=== PATIENT | female | born 1950 | race Caucasian/White ===

== ENCOUNTER 2019-08-13 06:18 | Day surgery (SDC) | payer MEDICARE, MEDICAID, SELFPAY ==
[2019-08-10 11:54] VITALS: BMI 25.7
[2019-08-13 06:35] VITALS: BP 119/62; PULSE 85; RESP 18; TEMP 36.3; O2SAT 94
[2019-08-13] MEDS: sodium chloride 0.9% 1,000 ML 30 ML (06:39)
--- NOTE | 2019-08-13 06:52 | ANES.PREANE2 ---
Pre-Anesthetic Assessment Pre-Anesthetic Assessment: Height/Weight: Height 1.68 m Weight 72.121 kg Temp Pulse Resp BP Pulse Ox 97.3 F L 85 18 119/62 94 08/13/19 06:35 08/13/19 06:35 08/13/19 06:35 08/13/19 06:35 08/13/19 06:35 Preop Diagnosis: Constipation Proposed Procedure: Operation Date: 08/13/19 07:30 Proposed Procedures p Colonoscopy 48129/K59.09(Not Applicable) - Liam Edwards MD Was Beta Drake taken within 24 hours: N/A Last intake: Intake Last Liquid Date 08/12/19 Last Liquid Time 21:00 Last Solid Date 08/08/19 Social: Social History: No alcohol and No tobacco Exam: Pre-Anes Outpt Exam: alert, oriented x 3, clear to auscultation bilaterally and regular rate & rhythm Airway: MP: 2 Dentition: False (top) History/ROS: No significant history except as noted and No significant complaints Pulmonary: Pulmonary: None reported CV/HEM: CV/HEM: HTN : : None reported Hepatic: Hepatic: None reported GI: GI: GERD (controlled) Metabolic: Metabolic: Thyroid (thyroidectomy) Musc/skel: Musc/skel: OA/DJD Neuropsych: Neuropsych: None reported Anesthetic Plan: ASA status: 2 Anesthesia: MAC PFSH Anesthesia PFSH: Social History Smoking and tobacco status: former smoker Alcohol intake: never Lives independently: Yes Marital status: Current occupational status: retired History of recent travel: No Data Anesthesia Cardiac Studies: No Data to Display
--- NOTE | 2019-08-13 07:05 | W.PM.OPSUD ---
Surgery/Procedure H&P Update DATE OF PROCEDURE: August 13, 2019 DATE H&P PERFORMED: 07/23/19 H&P UPDATE INFORMATION: I have reviewed H&P completed within last 30 days, I have examined patient prior to procedure and No changes to prior documentation PREOP DIAGNOSIS: Constipation PLANNED PROCEDURE: Operation Date: 08/13/19 07:30 Proposed Procedures p Colonoscopy 07132/K59.09(Not Applicable) - Liam Edwards MD
[2019-08-13 08:05] VITALS: BP 91/46; PULSE 61; RESP 16; TEMP 36.2; O2SAT 95
--- NOTE | 2019-08-13 08:16 | ANE.PACU2 ---
 Inpatient post-anesthesia follow up: Airway intact: Yes Vital signs: Temperature 97.3 F Pulse Rate 85 Respiratory Rate 18 Blood Pressure 119/62 Pulse Oximetry 94 Oxygen Delivery Me thod Room Air Oxygen Flow Rate Fraction of Inspir ed Oxygen Hydration adequate: Yes Nausea and vomiting: No
[2019-08-13 08:30] VITALS: BP 91/49; PULSE 58; RESP 16; TEMP 36.2; O2SAT 99
== END 2019-08-13 08:43 | disposition home or self-care (01) ==
PROVIDERS: Family Provider Family Medicine; PCP Family Medicine; Visit Provider Surgery
PROC: 0DJD8ZZ Inspection of Lower Intestinal Tract, Via Natural or Artificial Opening Endoscopic (ICD-10-PCS; CPT 45378; principal; 2019-08-13 07:30)
DX: K59.00 Constipation, unspecified (principal); Z86.010 Personal history of colon polyps; D12.5 Benign neoplasm of sigmoid colon; K64.8 Other hemorrhoids; I10 Essential (primary) hypertension; K21.9 Gastro-esophageal reflux disease without esophagitis; M19.90 Unspecified osteoarthritis, unspecified site; Z87.891 Personal history of nicotine dependence; E78.5 Hyperlipidemia, unspecified; Z83.3 Family history of diabetes mellitus; Z82.49 Family history of ischemic heart disease and other diseases of the circulatory system
CPT/HCPCS: 12345; 45385; 88305; J2704; J7030

== ENCOUNTER → 2019-09-13 09:11 | Outpatient (BNVA) | payer MEDICARE, MEDICAID, SELFPAY | PROVIDERS: Family Provider Family Medicine; PCP Family Medicine; Visit Provider Family Medicine | DX: I10 Essential (primary) hypertension (principal) | CPT/HCPCS: 80053; 80061 ==

== ENCOUNTER 2020-01-08 06:16 | Day surgery (SDC) | payer MEDICARE, MEDICAID, SELFPAY ==
[2020-01-01 11:54] VITALS: BMI 25.7
[2020-01-08 06:36] VITALS: BP 117/54; PULSE 61; RESP 18; TEMP 36.3; O2SAT 96
[2020-01-08] MEDS: sodium chloride 0.9% 1,000 ML 30 ML IV (06:53)
--- NOTE | 2020-01-08 06:56 | ANES.PREANE2 ---
Pre-Anesthetic Assessment Pre-Anesthetic Assessment: Height/Weight: Height 1.68 m Weight 72.121 kg Temp Pulse Resp BP Pulse Ox 97.3 F L 61 18 117/54 96 01/08/20 06:36 01/08/20 06:36 01/08/20 06:36 01/08/20 06:36 01/08/20 06:36 Preop Diagnosis: dysphagia Proposed Procedure: Operation Date: 01/08/20 07:30 Proposed Procedures p EGD 92237 K21.9(Not Applicable) - Liam Edwards MD Was Beta Drake taken within 24 hours: N/A Last intake: Intake Last Liquid Date 01/07/20 Last Liquid Time 18:00 Last Solid Date 01/07/20 Last Solid Time 18:00 Social: Social History: No alcohol and No tobacco Exam: Pre-Anes Outpt Exam: alert, oriented x 3, clear to auscultation bilaterally and regular rate & rhythm Airway: Submandibular: WNL Cervical ROM: WNL MP: 2 Dentition: False (upper plate) History/ROS: No significant history except as noted and No significant complaints Pulmonary: Pulmonary: None reported CV/HEM: CV/HEM: HTN : : None reported Hepatic: Hepatic: None reported GI: GI: GERD (controlled) Metabolic: Metabolic: Thyroid Musc/skel: Musc/skel: None reported Neuropsych: Neuropsych: None reported Anesthetic Plan: ASA status: 2 Anesthesia: Anesthesia Evaluation and MAC Risk of > 500 ml blood loss (7ml/kg in children): No Meds/Allergies Current Medications: Current Medications Generic Name Dose Route Start Last Admin Trade Name Freq PRN Reason Stop Dose Admin Sodium Chloride 1,000 mls @ 30 ml s/hr 01/08/20 06:30 01/08/20 06:53 Sodium Chloride 0.9% IV 30 mls/hr .Q24H ESTHELA Administration PFSH Anesthesia PFSH: Medical History Chronic cystitis Hypercholesteremia Hyperlipemia Hypothyroidism Surgical History H/O esophagogastroduodenoscopy 2018 History of appendectomy History of cholecystectomy 2018 History of thyroidectomy Status post colonoscopy with polypectomy 08/12/19: sigmoid polyp Family History Father , At age 82 from COPD and heart complications. COPD (chronic obstructive pulmonary disease) Mother , Age 76 Heart disease Other Diabetes Denies family history of Anesthesia complication Bleeding disorder Social History Smoking and tobacco status: former smoker Alcohol intake: never Lives independently: Yes Marital status: Current occupational status: retired History of recent travel: No Data Anesthesia Cardiac Studies: No Data to Display
--- NOTE | 2020-01-08 07:39 | W.PM.OPSFHP ---
Same Day Surgery H&P Indication for Procedure/HPI DATE OF PROCEDURE: January 08, 2020 CHIEF COMPLAINT/INDICATIONFOR SURGICAL PROCEDURE: throat discomfort PREOP DIAGNOSIS: dysphagia PLANNED PROCEDRUE: Operation Date: 01/08/20 07:30 Proposed Procedures p EGD 25716 K21.9(Not Applicable) - Liam Edwards MD Medications/Allergies* Home Medications Medication Instructions Recorded Confirmed Type cholecalciferol (vitamin D3) 25 1,000 unit PO QDAY 07/11/19 01/08/20 History mcg (1,000 unit) capsule hydrochlorothiazide 12.5 mg capsule 25 mg PO QAM 07/11/19 01/08/20 History levothyroxine 100 mcg capsule 100 mcg PO QDAY 07/11/19 01/08/20 History pantoprazole 40 mg tablet,delayed 40 mg PO QDAY 07/11/19 01/08/20 History release pravastatin 40 mg tablet 60 mg PO QDAY tab 07/11/19 01/08/20 History Allergies/Adverse Reactions Allergy/AdvReac Type Severity Reaction Status Date / Time acetaminophen Allergy Unknown Verified 08/28/19 11:07 [From Darvocet-N] codeine Allergy ADR-Nausea Verified 08/28/19 11:07 nitrofurantoin Allergy ADR-Nausea Verified 08/28/19 11:07 [From Macrobid] propoxyphene Allergy Unknown Verified 08/28/19 11:07 [From Darvocet-N] Current Medications: Generic Name Dose Route Start Last Admin Trade Name Freq PRN Reason Stop Dose Admin Sodium Chloride 1,000 mls @ 30 mls/hr 01/08/20 06:30 01/08/20 06:53 Sodium Chloride 0.9% IV 30 mls/hr .Q24H ESTHELA Administration Pertinent History/Comorbid Conditions* Medical History (Updated 11/21/19 @ 12:29 by Abby Mckeon APRN) Chronic cystitis Hypercholesteremia Hyperlipemia Hypothyroidism Surgical History (Updated 08/29/19 @ 09:12 by Liam Edwards MD) H/O esophagogastroduodenoscopy 2018 History of appendectomy History of cholecystectomy 2018 History of thyroidectomy Status post colonoscopy with polypectomy 08/12/19: sigmoid polyp Family History (Updated 07/23/19 @ 15:02 by Natasha Mckeon LPN) Father, At age 82 from COPD and heart complications. Mother, Age 76 Diabetes Heart disease Mother COPD (chronic obstructive pulmonary disease) Father Denies family history of Anesthesia complication Bleeding disorder Social History Smoking and tobacco status: former smoker Alcohol intake: never Lives independently: Yes Marital status: Current occupational status: retired History of recent travel: No Pertinent Exam Findings alert, oriented x 3 and regular rate & rhythm Recommendations Surgery/Procedure today Coding Level of Care Code Acute Supervising Bailiff for Mariya Elaine
[2020-01-08 07:47] VITALS: BP 107/53; PULSE 67; RESP 16; TEMP 36.2; O2SAT 95
[2020-01-08 07:55] VITALS: BP 102/56; PULSE 59; RESP 18; O2SAT 97
== END 2020-01-08 08:05 | disposition home or self-care (01) ==
PROVIDERS: PCP Family Medicine; Visit Provider Surgery
PROC: 0DJ08ZZ Inspection of Upper Intestinal Tract, Via Natural or Artificial Opening Endoscopic (ICD-10-PCS; CPT 43235; principal; 2020-01-08 07:30)
DX: R13.10 Dysphagia, unspecified (principal); E78.5 Hyperlipidemia, unspecified; E03.9 Hypothyroidism, unspecified; E78.00 Pure hypercholesterolemia, unspecified; Z87.891 Personal history of nicotine dependence; I10 Essential (primary) hypertension; K21.9 Gastro-esophageal reflux disease without esophagitis; K22.2 Esophageal obstruction; K44.9 Diaphragmatic hernia without obstruction or gangrene; K29.70 Gastritis, unspecified, without bleeding
CPT/HCPCS: 12345; 43239; 88305; J2704; J7030

== ENCOUNTER 2020-02-19 06:00 | Outpatient (RCR) | payer MEDICARE, MEDICAID, SELFPAY | END 2020-03-19 23:59 | disposition home or self-care (01) | LOC: WPT 06:00 | PROVIDERS: PCP Family Medicine; Referring Provider Family Medicine; Visit Provider Family Medicine | DX: H81.10 Benign paroxysmal vertigo, unspecified ear (principal) | CPT/HCPCS: 97110; 97164 ==

== ENCOUNTER 2020-03-20 09:00 | Outpatient (RCR) | payer MEDICARE, MEDICAID, SELFPAY | END 2020-03-21 10:00 | disposition home or self-care (01) | LOC: WPT 09:00 | PROVIDERS: PCP Family Medicine; Referring Provider Family Medicine; Visit Provider Family Medicine | DX: H81.10 Benign paroxysmal vertigo, unspecified ear (principal) | CPT/HCPCS: 97110 ==

== ENCOUNTER → 2020-08-13 12:57 | Outpatient (BNVA) | payer MEDICARE, MEDICAID, SELFPAY | PROVIDERS: PCP Family Medicine; Visit Provider Urology | DX: N30.20 Other chronic cystitis without hematuria (principal) | CPT/HCPCS: 81003 ==

== ENCOUNTER 2020-08-29 13:01 | Outpatient (CLI) | payer MEDICARE, MEDICAID, SELFPAY ==
--- NOTE | 2020-08-29 13:04 | MM_ITS ---
WS: [id number] BILATERAL DIGITAL SCREENING MAMMOGRAPHY WITH CAD CLINICAL INFORMATION: SCREENING HISTORY: Screening mammogram. No current complaints. COMPARISON: TECHNIQUE: Bilateral CC and MLO views. FINDINGS: Scattered fibroglandular densities bilaterally. No suspicious focal mass, asymmetry, calcifications, or architectural distortion. No evidence of malignancy. A few stable intramammary lymph nodes. MM/[place] [id number] IMPRESSION: BI-RADS: 2-Benign FOLLOW UP: 1 Year Follow-up Recommend return to annual screening mammography.
== END 2020-08-29 13:02 | disposition home or self-care (01) ==
PROVIDERS: PCP Family Medicine; Visit Provider Family Medicine
DX: Z12.31 Encounter for screening mammogram for malignant neoplasm of breast (principal)
CPT/HCPCS: 77067

== ENCOUNTER 2020-11-05 13:18 | Outpatient (RCR) | payer MEDICARE, SELFPAY | END 2020-11-17 23:59 | disposition home or self-care (01) | LOC: SPT 13:18 | PROVIDERS: PCP Family Medicine; Referring Provider Family Medicine; Visit Provider Family Medicine | DX: H81.10 Benign paroxysmal vertigo, unspecified ear (principal) | CPT/HCPCS: 95992; 97162 ==

== ENCOUNTER 2020-11-11 12:51 | Outpatient (CLI) | payer MEDICARE, MEDICAID, SELFPAY ==
--- NOTE | 2020-11-11 12:57 | XR_ITS ---
WS: [id number] SCREENING DEXA SCAN [employer] CLINICAL INFORMATION: OSTEOPOROSIS COMPARISON: May 2018 FINDINGS: The L1-L4 bone mineral density measures 0.875 g/cm2. This corresponds to a T score score of -2.5 and Z score of -1.2. Left femoral neck bone mineral density measures 0.857 g/cm2. This corresponds to a T score of -1.2 an d Z score of 0.0. Right femoral neck bone mineral density measures 0.844 g/cm2. This corresponds to a T score -1.3of an d Z score of -0.1. Mean femoral neck bone mineral density measures 0.850 g/cm2. This corresponds to a T score of -1.2 an d Z score of 0.0. XR/XR DEXA axial skeleton* [id number] IMPRESSION: Osteopenia at the upper end of the range Patient's FRAX calculated 10 year probability for major osteoporotic fracture i s 18.7 % and osteoporotic hip fracture is 4.3%.
== END 2020-11-11 12:52 | disposition home or self-care (01) ==
PROVIDERS: PCP Family Medicine; Visit Provider Family Medicine
DX: M81.0 Age-related osteoporosis without current pathological fracture (principal)
CPT/HCPCS: 77080

== ENCOUNTER 2020-11-18 06:00 | Outpatient (RCR) | payer MEDICARE, MEDICAID, SELFPAY | END 2020-12-17 23:59 | disposition home or self-care (01) | LOC: SPT 06:00 | PROVIDERS: PCP Family Medicine; Referring Provider Family Medicine; Visit Provider Family Medicine | DX: H81.10 Benign paroxysmal vertigo, unspecified ear (principal) | CPT/HCPCS: 95992 ==

== ENCOUNTER → 2021-04-02 08:16 | Outpatient (BNVA) | payer MEDICARE, MEDICAID, SELFPAY | PROVIDERS: PCP Family Medicine; Visit Provider Family Medicine | DX: E78.5 Hyperlipidemia, unspecified (principal) | CPT/HCPCS: 80061; 83721 ==

== ENCOUNTER 2021-04-20 06:00 | Outpatient (RCR) | payer MEDICARE, MEDICAID, SELFPAY | END 2021-05-19 23:59 | disposition home or self-care (01) | LOC: SPT 06:00 | PROVIDERS: PCP Family Medicine; Referring Provider Family Medicine; Visit Provider Family Medicine | DX: H81.10 Benign paroxysmal vertigo, unspecified ear (principal) | CPT/HCPCS: 95992; 97162 ==

== ENCOUNTER 2021-06-01 13:23 | Outpatient (CLI) | payer MEDICARE, MEDICAID, SELFPAY ==
--- NOTE | 2021-06-01 13:27 | MR_ITS ---
WS: [id number] MRI HEAD WITH CONTRAST TECHNIQUE: Sagittal T1, T2 axial, T2 axial FLAIR, axial susceptibility weighted imaging, axial diffus ion weighted images, and coronal T2 images were obtained. Pre and post-T1 axial and post T1 coronal i mages. ADC and FSPGR images. CLINICAL INFORMATION: HEADACHE UNSPEC;VERTIGO COMPARISON: None. FINDINGS: No evidence of restricted diffusion to suggest acute ischemia. Ventricular system and basal cisterns are patent. Mild small vessel changes. Mild parenchymal volume loss. Normal posterior fossa. Normal v ascular flow voids at the skull base. No extra-axial fluid collections. Paranasal sinuses and mastoid air cells well aerated. No hemosiderin on the susceptibly weighted images. Normal optic chiasm and p ituitary infundibulum. Mild symmetric atrophy temporal lobes and hippocampal formations. No abnormal gadolinium enhancement. Normal visualized dural venous sinuses. No other significant find ings. MR/MR head wo/w con [id number] IMPRESSION: 1. No evidence of restricted diffusion to suggest acute ischemia. 2. Mild small vessel changes with mild parenchymal volume loss. 3. No abnormal gadolinium enhancement. 4. Paranasal sinuses and mastoid air cells are well aerated. 5. Mild symmetric atrophy temporal lobes and hippocampal formations. 6. No hemosiderin on susceptibly weighted images. 7. No acute intracranial findings.
[2021-06-01 14:43] LABS: Blood Urea Nitrogen 12 mg/dL (8-23); Glomerular Filtration Rate 82.7 mL/min (90-130)
== END 2021-06-01 13:24 | disposition home or self-care (01) ==
LOC: RADSHAW 13:26
PROVIDERS: PCP Family Medicine; Visit Provider Family Medicine
DX: R51.9 Headache, unspecified (principal); R42 Dizziness and giddiness; G31.9 Degenerative disease of nervous system, unspecified
CPT/HCPCS: 70553; 82565; 84520; A9579

== ENCOUNTER → 2021-09-10 15:38 | Outpatient (BNVA) | payer MEDICARE, MEDICAID, SELFPAY | PROVIDERS: PCP Family Medicine; Visit Provider Surgery | DX: Z20.822 Contact with and (suspected) exposure to COVID-19 (principal) | CPT/HCPCS: 87635 ==

== ENCOUNTER 2021-09-16 07:32 | Day surgery (SDC) | payer MEDICARE, MEDICAID, SELFPAY ==
[2021-09-14 09:40] VITALS: BMI 26.3
--- NOTE | 2021-09-16 08:22 | ANES.PREANE2 ---
Pre-Anesthetic Assessment Height/Weight: Height 1.68 m Weight 73.936 kg Preop Diagnosis: upper gi symptoms Operation Date: 09/16/21 09:15 Proposed Procedures p EGD Dilation 65383/r13.10(Not Applicable) - Liam Edwards MD Familial anesthetic complications: None Was Beta Drake taken within 24 hours: N/A Was Clonidine taken within 24 hours: N/A Last intake: 09/15/21 Social No alcohol and No tobacco Former smoker pack(s) per day Exam alert, oriented x 3, clear to auscultation bilaterally and regular rate & rhythm Airway Submandibular: within normal limits Cervical ROM: within normal limits Mallampati: Class II Dentition: partials Pulmonary None reported CV/HEM None reported METS = 4 Cystitis hx Hepatic None reported GI GERD w/ reflux, recurrent food bolus per patient Metabolic Thyroid Disease [facility] [place] None reported Neuropsych None reported Anesthetic Plan ASA status: 2 Anesthesia: Anesthesia Evaluation, General and MAC Other: I discussed with the patient risks, goals, and benefits of MAC and general anesthesia. We discussed spectrum of MAC anesthesia including conversion to general as well as possibility of recall of intraoperative stimuli including discomfort/pain. Patient agrees to proceed with MAC. Risk of > 500 ml blood loss (7ml/kg in children): No Medications/Allergies Home Medications Medication Instructions Recorded Confirmed Last Taken Type cholecalciferol (vitamin D3) 25 5,000 unit PO QDAY 07/11/19 09/14/21 01/07/20 History mcg (1,000 unit) capsule hydrochlorothiazide 12.5 mg capsule 25 mg PO BEDTIME 07/11/19 09/14/21 01/08/20 History levothyroxine 100 mcg capsule 100 mcg PO QDAY 07/11/19 09/14/21 01/08/20 History pravastatin 40 mg tablet 60 mg PO QDAY tab 07/11/19 09/14/21 01/08/20 History ascorbic acid (vitamin C) 250 mg 500 mg PO DAILY 09/14/21 09/14/21 Unknown History tablet (Vitamin C) inptffpx-skek-kcf-folic acid 3,500 2 tab PO DAILY 09/14/21 09/14/21 Unknown History unit-18 mg-0.4 mg chewable tablet omeprazole 20 mg tablet,delayed 20 mg PO DAILY 09/14/21 09/14/21 Unknown History release sulfamethoxazole 800 1 tab PO BID PRN 09/14/21 09/14/21 Unknown History mg-trimethoprim 160 mg tablet Allergies Allergy/AdvReac Type Severity Reaction Status Date / Time acetaminophen Allergy Unknown Verified 09/14/21 09:36 [From Darvocet-N] codeine Allergy ADR-Nausea Verified 09/14/21 09:36 nitrofurantoin Allergy ADR-Nausea Verified 09/14/21 09:36 [From Macrobid] propoxyphene Allergy Unknown Verified 09/14/21 09:36 [From Darvocet-N] [facility] Anesthesia Medical History Chronic cystitis Hypercholesteremia Hyperlipemia Hypothyroidism Surgical History H/O esophagogastroduodenoscopy (01/08/20) hiatal hernia with schatzki ring History of appendectomy History of cholecystectomy 2018 History of thyroidectomy Status post colonoscopy with polypectomy 08/12/19: sigmoid polyp Family History Father , At age 82 from COPD and heart complications. COPD (chronic obstructive pulmonary disease) Mother , Age 76 Heart disease Other Diabetes Denies family history of Anesthesia complication Bleeding disorder Social History Smoking and tobacco status: former smoker Alcohol intake: never Lives independently: Yes Marital status: Current occupational status: retired History of recent travel: No Data Anesthesia Cardiac Studies: No Data to Display
[2021-09-16 08:35] VITALS: BP 147/50; PULSE 71; RESP 17; TEMP 36.6; O2SAT 95
[2021-09-16] MEDS: sodium chloride 0.9% 1,000 ML 30 ML IV (08:45)
--- NOTE | 2021-09-16 09:30 | P.HP_ITS ---
Same Day Surgery H&P Indication for Procedure/HPI DATE OF PROCEDURE: September 16, 2021 CHIEF COMPLAINT/INDICATIONFOR SURGICAL PROCEDURE: egd for dysphagia PREOP DIAGNOSIS: upper gi symptoms PLANNED PROCEDURE: Operation Date: 09/16/21 09:15 Proposed Procedures p EGD Dilation 61825/r13.10(Not Applicable) - Liam Edwards MD Medications/Allergies* Home Medications Medication Instructions Recorded Confirmed Type cholecalciferol (vitamin D3) 25 5,000 unit PO QDAY 07/11/19 09/16/21 History mcg (1,000 unit) capsule hydrochlorothiazide 12.5 mg capsule 25 mg PO BEDTIME 07/11/19 09/16/21 History levothyroxine 100 mcg capsule 100 mcg PO QDAY 07/11/19 09/16/21 History pravastatin 40 mg tablet 60 mg PO QDAY tab 07/11/19 09/16/21 History ascorbic acid (vitamin C) 250 mg 500 mg PO DAILY 09/14/21 09/16/21 History tablet (Vitamin C) qmyyirhi-tugn-ulf-folic acid 3,500 2 tab PO DAILY 09/14/21 09/16/21 History unit-18 mg-0.4 mg chewable tablet omeprazole 20 mg tablet,delayed 20 mg PO DAILY 09/14/21 09/16/21 History release sulfamethoxazole 800 1 tab PO BID PRN 09/14/21 09/14/21 History mg-trimethoprim 160 mg tablet Allergies/Adverse Reactions Allergy/AdvReac Type Severity Reaction Status Date / Time acetaminophen Allergy Unknown Verified 09/16/21 08:31 [From Darvocet-N] codeine Allergy ADR-Nausea Verified 09/16/21 08:31 nitrofurantoin Allergy ADR-Nausea Verified 09/16/21 08:31 [From Macrobid] propoxyphene Allergy Unknown Verified 09/16/21 08:31 [From Darvocet-N] Current Medications: Generic Name Dose Route Start Last Admin Trade Name Freq PRN Reason Stop Dose Admin Sodium Chloride 1,000 mls @ 30 mls/hr 09/16/21 08:00 09/16/21 08:45 Sodium Chloride 0.9% IV 09/17/21 07:59 30 mls/hr .Q24H ESTHELA Administration Pertinent History/Comorbid Conditions* Medical History (Updated 08/10/21 @ 13:33 by Liam Edwards MD) Chronic cystitis Hypercholesteremia Hyperlipemia Hypothyroidism Surgical History (Updated 01/22/20 @ 07:30 by Liam Edwards MD) H/O esophagogastroduodenoscopy (01/08/20) hiatal hernia with schatzki ring History of appendectomy History of cholecystectomy 2018 History of thyroidectomy Status post colonoscopy with polypectomy 08/12/19: sigmoid polyp Family History (Updated 07/23/19 @ 15:02 by Natasha Mckeon LPN) Father, At age 82 from COPD and heart complications. Mother, Age 76 Diabetes Heart disease Mother COPD (chronic obstructive pulmonary disease) Father Denies family history of Anesthesia complication Bleeding disorder Social History Smoking and tobacco status: former smoker Alcohol intake: never Lives independently: Yes Marital status: Current occupational status: retired History of recent travel: No Pertinent Exam Findings alert, oriented x 3 and regular rate & rhythm Recommendations Surgery/Procedure today Coding Level of Care Code Acute Research Anthropologist for Mariya Elaine
--- NOTE | 2021-09-16 09:47 | SUR.OPER ---
balloon inflated to 12, 13.5, 15, and 15, 16.5, 18 and 18, 19, 20
[2021-09-16 10:04] VITALS: BP 98/63; PULSE 72; RESP 16; TEMP 36.1; O2SAT 97
[2021-09-16 10:15] VITALS: BP 108/50; PULSE 68; RESP 14; TEMP 36.4; O2SAT 97
--- NOTE | 2021-09-16 16:06 | ANE.PACU2 ---
Inpatient post-anesthesia follow up: Airway intact: Yes Vital signs: Temperature 97.6 F Pulse Rate 68 Respiratory Rate 14 Blood Pressure 108/50 Pulse Oximetry 97 Oxygen Delivery Me thod Room Air Oxygen Flow Rate 2 Fraction of Inspir ed Oxygen Hydration adequate: Yes Nausea and vomiting: No Pain level: 1 Mental status: Baseline
== END 2021-09-16 10:50 | disposition home or self-care (01) ==
PROVIDERS: PCP Family Medicine; Visit Provider Surgery
DX: R13.10 Dysphagia, unspecified (principal); K44.9 Diaphragmatic hernia without obstruction or gangrene; E78.00 Pure hypercholesterolemia, unspecified; E78.5 Hyperlipidemia, unspecified; E03.9 Hypothyroidism, unspecified; Z87.891 Personal history of nicotine dependence; K22.2 Esophageal obstruction
CPT/HCPCS: 43239; 43249; 88305; J2704; J7030

== ENCOUNTER → 2021-09-21 09:12 | Outpatient (BNVA) | payer MEDICARE, MEDICAID, SELFPAY | PROVIDERS: PCP Family Medicine; Visit Provider Surgery | DX: Z09 Encounter for follow-up examination after completed treatment for conditions other than malignant neoplasm (principal) | CPT/HCPCS: 99212 ==

== ENCOUNTER → 2022-10-06 08:11 | Outpatient (BNVA) | payer MEDICARE, MEDICAID, SELFPAY | PROVIDERS: PCP Family Medicine; Visit Provider Family Medicine | DX: E03.9 Hypothyroidism, unspecified (principal); E78.00 Pure hypercholesterolemia, unspecified; E78.5 Hyperlipidemia, unspecified; E55.9 Vitamin D deficiency, unspecified | CPT/HCPCS: 80053; 80061; 82306 ==

== ENCOUNTER 2023-01-31 09:52 | Outpatient (CLI) | payer MEDICARE, MEDICAID, SELFPAY ==
--- NOTE | 2023-01-31 09:56 | MM_ITS ---
WS: [id number] BILATERAL SCREENING DIGITAL TOMOSYNTHESIS MAMMOGRAM WITH CAD HISTORY: SCREENING COMPARISON: 08/29/2020, 06/15/2018 Bilateral CC and MLO views with tomosynthesis and synthetic mammography submitted. Computer aided det ection analyzed. Breast composition: There are scattered areas of fibroglandular density. No suspicious masses, microc alcifications or architectural distortion. Scattered benign calcifications right breast. Benign intra mammary lymph nodes. IMPRESSION: MM/[place] [id number] BI-RADS: 2-Benign FOLLOW UP: 1 Year Follow-up
== END 2023-01-31 09:53 | disposition home or self-care (01) ==
LOC: RAD 09:56 → MOBLMAM 09:56
PROVIDERS: PCP Family Medicine; Visit Provider Nurse Practitioner Family
DX: Z12.31 Encounter for screening mammogram for malignant neoplasm of breast (principal)
CPT/HCPCS: 77063; 77067

== ENCOUNTER → 2023-04-12 08:55 | Outpatient (BNVA) | payer MEDICARE, MEDICAID, SELFPAY | PROVIDERS: PCP Family Medicine; Visit Provider Family Medicine | DX: E03.9 Hypothyroidism, unspecified (principal); E78.00 Pure hypercholesterolemia, unspecified; E78.5 Hyperlipidemia, unspecified; I10 Essential (primary) hypertension; R13.10 Dysphagia, unspecified | CPT/HCPCS: 80053; 80061; 84443 ==

== ENCOUNTER → 2023-07-13 12:04 | Outpatient (BNVA) | payer MEDICARE, MEDICAID, SELFPAY | PROVIDERS: PCP Family Medicine; Visit Provider Family Medicine | DX: R55 Syncope and collapse (principal); Z79.899 Other long term (current) drug therapy | CPT/HCPCS: 80053; 85025 ==

== ENCOUNTER 2024-02-02 10:41 | Outpatient (CLI) | payer MEDICARE, MEDICAID, SELFPAY ==
--- NOTE | 2024-02-02 10:46 | MM_ITS ---
WS: [id number] BILATERAL SCREENING DIGITAL TOMOSYNTHESIS MAMMOGRAM WITH CAD HISTORY: SCREENING COMPARISON: 01/31/2023, 08/29/2020 Bilateral CC and MLO views with tomosynthesis and synthetic mammography submitted. Computer aided det ection analyzed. Breast composition: There are scattered areas of fibroglandular density. No suspicious masses, microc alcifications or architectural distortion. Bilateral intramammary lymph nodes. Bilateral benign calci fications. MM/[place] [id number] IMPRESSION: BI-RADS: 2-Benign FOLLOW UP: 1 Year Follow-up
== END 2024-02-02 10:42 | disposition home or self-care (01) ==
LOC: RAD 10:42
PROVIDERS: Absent Provider Nurse Practitioner Family; PCP Family Medicine; Visit Provider Family Medicine
DX: Z12.31 Encounter for screening mammogram for malignant neoplasm of breast (principal)
CPT/HCPCS: 77063; 77067

== ENCOUNTER → 2024-04-05 08:35 | Outpatient (BNVA) | payer MEDICARE, MEDICAID, SELFPAY | PROVIDERS: PCP Family Medicine; Visit Provider Nurse Practitioner Family | DX: I10 Essential (primary) hypertension (principal); R53.83 Other fatigue; K13.70 Unspecified lesions of oral mucosa | CPT/HCPCS: 80053; 82607; 83540; 84439; 84443; 85025 ==

== ENCOUNTER 2024-06-05 06:00 | Outpatient (RCR) | payer MEDICARE, MEDICAID, SELFPAY | END 2024-06-19 23:59 | disposition home or self-care (01) | LOC: WPT 06:00 | PROVIDERS: Visit Provider Nurse Practitioner Family | DX: H81.10 Benign paroxysmal vertigo, unspecified ear (principal) | CPT/HCPCS: 97110; 97161; 97530 ==

== ENCOUNTER 2024-06-19 15:07 | Outpatient (CLI) | payer MEDICARE, MEDICAID, SELFPAY ==
--- NOTE | 2024-06-19 15:45 | USCV_ITS ---
Chula Alfredo Age: 74 Gender: F : 1950 Exam Date: 06/19/2024 15:18 Ordering Phys: Tomasa Villa Technologist: CANDACE [place]am [place] [facility] [place] Ind[place]: dizziness Risk Factors: Previous Vascular Surgery: Right Brachial BP: / Left Brachial BP: / Right Left Velocity (cm/s) Spectral Plaque Velocity (cm/s) Spectral Plaque Syst/Diast Broadening Syst/Diast Broadening 73.40/ 8.40 Prox CCA 80.20 / 20.60 57.80/ 11.90 Mid CCA 103.30/ 26.60 50.20/ 9.70 Distal CCA 90.50 / 19.30 51.60/ 11.70 Prox ICA 57.60 / 14.00 48.20/ 11.50 Mid ICA 63.60 / 14.00 44.70/ 16.10 Distal ICA 73.30 / 20.10 73.00 ECA 109.60 1.00 ICA/CCA 0.60 Antegrade Vertebral Antegrade 37.30/ 8.70 cm/s 47.90/ 11.60 cm/s Tri Subclavian Tri 67.50 149.1 0 CONCLUSIONS Right ICA stenosis <50%. Mild atheromatous plaque right carotid bulb/ICA. Left ICA stenosis <50%. Mild atheromatous plaque left carotid bulb/ICA. Normal antegrade Doppler flow noted in the right vertebral artery. Normal antegrade Doppler flow noted in the left vertebral artery. Juan Carlos Marcelo MD (Electronically Signed) Final Date: 19 June 2024 18:06 S
== END 2024-06-19 15:08 | disposition home or self-care (01) ==
LOC: RAD 15:07
PROVIDERS: PCP Nurse Practitioner Family; Visit Provider Nurse Practitioner Family
DX: R42 Dizziness and giddiness (principal)
CPT/HCPCS: 93880

== ENCOUNTER 2024-07-06 13:59 | Outpatient (CLI) | payer MEDICARE, MEDICAID, SELFPAY ==
--- NOTE | 2024-07-06 14:30 | MR_ITS ---
WS: [id number] MRI BRAIN WITHOUT CONTRAST HISTORY: R42 - Dizziness and giddiness COMPARISON: 06/01/2021 TECHNIQUE: Diffusion imaging, multiplanar T1, T2 and FLAIR imaging obtained. No evidence for acute infarct or hemorrhage. Silver-white matter differentiation is normal. Scattered T 2 and FLAIR signal hyperintensities are minimal. There has been slight progression since the prior st udy from 2020. Mild cerebral atrophy. Ventricles and extra-axial spaces are normal. No inferior displacement of cerebellar tonsils. The sella turcica and pituitary gland are unremarkabl e. Dural venous sinuses and [place] demonstrate no abnormality on this unenhanced studies. Paranasal sinuses: Clear. Mastoid air cells: Normal. Calvarium and scalp: Intact. MR/MR head wo con* [id number] IMPRESSION: 1. No acute infarct or hemorrhage. 2. Mild atrophy and mild small vessel disease which has minimally progressed s [email or web address]. 3. No prior infarct. 4. No significant paranasal sinus disease.
== END 2024-07-06 14:00 | disposition home or self-care (01) ==
LOC: RAD 13:59
PROVIDERS: PCP Nurse Practitioner Family; Visit Provider Nurse Practitioner Family
DX: R42 Dizziness and giddiness (principal); R51.9 Headache, unspecified; G31.9 Degenerative disease of nervous system, unspecified; I73.9 Peripheral vascular disease, unspecified
CPT/HCPCS: 70551

== ENCOUNTER → 2024-09-21 08:19 | Outpatient (BNVA) | payer MEDICARE, MEDICAID, SELFPAY | PROVIDERS: PCP Nurse Practitioner Family; Visit Provider Nurse Practitioner Family | DX: T78.40XD Allergy, unspecified, subsequent encounter (principal); E03.9 Hypothyroidism, unspecified; R53.83 Other fatigue; I10 Essential (primary) hypertension; E61.1 Iron deficiency; E87.6 Hypokalemia; X58.XXXD Exposure to other specified factors, subsequent encounter | CPT/HCPCS: 80053; 80061; 83540; 83550; 84439; 84443; 85025 ==

== ENCOUNTER → 2024-11-20 10:42 | Outpatient (BNVA) | payer MEDICARE, MEDICAID, SELFPAY | PROVIDERS: PCP Family Medicine; Visit Provider Family Medicine | DX: R13.10 Dysphagia, unspecified (principal); R68.2 Dry mouth, unspecified; I10 Essential (primary) hypertension; E78.5 Hyperlipidemia, unspecified; E78.00 Pure hypercholesterolemia, unspecified; E55.9 Vitamin D deficiency, unspecified; E03.9 Hypothyroidism, unspecified; Z00.00 Encounter for general adult medical examination without abnormal findings | CPT/HCPCS: 80053; 80061; 84443; 85025; 86140; 86160; 86162; 86235; 86255; 86376 ==

== ENCOUNTER 2024-11-26 12:45 | Outpatient (CLI) | payer MEDICARE, MEDICAID, SELFPAY ==
--- NOTE | 2024-11-26 13:30 | XR_ITS ---
WS: [id number] DEXA (DUAL ENERGY X-RAY ABSORPTIOMETRY) Bone mineral density was performed using a [employer] machine. HISTORY: screening COMPARISON: 11/11/2020 Lumbar spine BMD (L1-L4): 0.830 g/cm2 T score: -2.9 Z score: -1.4 Total hip BMD: Left: 0.827 g/cm2. T score: -1.4 Z score: 0.1 Right: 0.812 g/cm2. T score: -1.6 Z score: 0.0 10 year probability of a major osteoporotic fracture is 14.1%. Compared to the prior study from 11/11/2020. Lumbar spine bone mineral density has decreased by 5.1%. Bilateral hips bone mineral density has decreased by 3.6%. XR/XR DEXA axial skeleton* [id number] IMPRESSION: OSTEOPOROSIS based upon the WHO classification for females. There has been a significant decrease in bone mineral density within both the l umbar spine and hips since the prior study.
== END 2024-11-26 12:46 | disposition home or self-care (01) ==
PROVIDERS: PCP Family Medicine; Visit Provider Family Medicine
DX: Z00.00 Encounter for general adult medical examination without abnormal findings (principal); M81.0 Age-related osteoporosis without current pathological fracture
CPT/HCPCS: 77080

== ENCOUNTER → 2024-12-11 09:07 | Outpatient (BNVA) | payer MEDICARE, MEDICAID, SELFPAY | PROVIDERS: PCP Family Medicine; Referring Provider Family Medicine; Visit Provider Surgery | DX: Z12.11 Encounter for screening for malignant neoplasm of colon (principal) | CPT/HCPCS: 99024; 99213 ==

== ENCOUNTER 2024-12-27 09:15 | Emergency (ER) | payer MEDICARE, MEDICAID, SELFPAY ==
[2024-12-27 09:16] VITALS: BP 142/70; PULSE 80; RESP 16; O2SAT 95
--- OUTSIDE RECORDS SUMMARY | 2024-12-27 09:19 | XMS_ITS | Encounter Summary ---
Author Organization [facility] Address [address] [place] [address] Care Team Providers Care Laundry Aide Name Role Phone Dave Jacobo MD Primary Care Provider Encounter Details Date Type Department Care Team (Latest Contact Info) Description 10/30/2003 Outpatient Historical [facility] [address] [place] [address] Tomasa Villa, MACHINE CHAIN MAKER [address] [place] [address] ABN BLOOD CHEMISTRY NEC (Primary Dx) Social History Tobacco Use Types Packs/Day Years Used Date Smoking Tobacco: Never Assessed Comments Unknown Sex and Gender Information Value Date Recorded Sex Assigned at Not on file 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
--- OUTSIDE RECORDS SUMMARY | 2024-12-27 09:19 | XMS_ITS | Encounter Summary ---
Author Organization [facility] Address [address] [place] [address] Care Team Providers Care Clinical Counselor Name Role Phone Dave Jacobo MD Primary Care Provider Encounter Details Date Type Department Care Team (Latest Contact Info) Description 05/18/2004 Outpatient Historical [facility] Leonel Alex MD [address] [place] [address] POSTSURG AFTERCARE OTHER SPECIFIED (Primary Dx) Social History Tobacco Use Types Packs/Day Years Used Date Smoking Tobacco: Never Assessed Comments Unknown Sex and Gender Information Value Date Recorded Sex Assigned at Not on file 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
--- OUTSIDE RECORDS SUMMARY | 2024-12-27 09:19 | XMS_ITS | Clinical Summary ---
Author Organization [employer] Address [address] [place]: Epic Prelude ADT [place] [address] Care Team Providers Care Ecology Teacher Name Role Phone Unavailable Primary Care Provider Unavailabl e Allergies Active Allergy Reactions Criticality Noted Date Comments Codeine Nausea and Vomiting Low 03/15/2008 Propoxyphene Nausea and Vomiting Low 03/15/2008 Medications pravastatin (PRAVACHOL) 40 mg tablet Take 60 mg by mouth late in the day. Active cholecalciferol, vitamin D3, 5,000 unit Take 400 Units by mouth daily. Active silver sulfADIAZINE (SILVADENE) 1 % CreamIndications: Partial thickness burn of elbow, unspecified laterality, initial encounter Apply to affected area daily. 50 Gram 1 1 Active levothyroxine 100 mcg tablet Take 100 mcg by mouth daily blood typer. 8 Active hydroCHLOROthiazi de 25 mg tablet Take 25 mg by mouth daily. In the evening Active estradioL (ESTRACE) 0.01% (0.1 mg/g) vaginal cream APPLY TWO TO THREE TIMES PER WEEK 4 Active meclizine (ANTIVERT) 25 mg tablet PRN 4 Active ondansetron (ZOFRAN) 8 mg Tablet Take 1 Tablet by mouth every 4 hours. 4 Active Active Problems Problem Noted Date Diagnosed Date Demand ischemia 05/15/2024 Troponin level elevated 05/14/2024 Syncope 05/14/2024 Gastroesophageal reflux disease without esophagi tis 05/13/2024 Mixed hyperlipidemia 05/13/2024 Postsurgical hypothyroidism 04/04/2009 Resolved Problems Problem Noted Date Diagnosed Date Resolved Date NSTEMI (non-ST elevated myoc ardial infarction) 05/13/2024 05/14/2024 Encounters Date Type Department Care Team Description 12/11/2024 External Device Data STL ABSTRACTION Provider, Abstract 12/11/2024 External Device Data STL ABSTRACTION Provider, Abstract 11/13/2024 External Device Data STL ABSTRACTION Provider, Abstract 10/23/2024 External Device Data STL ABSTRACTION Provider, Abstract 10/23/2024 External Device Data STL ABSTRACTION Provider, Abstract from Last 3 Months Immunizations Immunization Administration Dates Next Due INFLUENZA VACCINE HIGH DOSE QUADRIVALENT 65 YR U P PF IM 04/11/2023 PREVNAR (PCV13) pneumococcal 13-valent conjugate Vaccine 04/29/2018 Social History Tobacco Use Types Packs/Day Years Used Date Smoking Tobacco: Former Cigarettes Q uit: 01/20/2016 Smokeless Tobacco: Never Tobacco Cessation:Counseling Given: Not Answered Alcohol Use Standard Drinks/Week Comments No 0 (1 standard drink = 0.6 oz pur e alcohol) Feeling Safe Answer Date Recorded Are you in a relationship wi th someone who hurts you emotionally and/or physically? No 08/15/2024 Comments No Sex and Gender Information Value Date Recorded Sex Assigned at Not on file Legal Sex Female 3:27 PM REBRANDER Gender Identity Not on file Sexual Orientation Not on file Last Filed Vital Signs Vital Sign Reading Time Taken Comments Blood Pressure 126/50 08/15/2024 12:50 PM REBRANDER Pulse 67 08/15/2024 12:50 PM REBRANDER Temperature 36.1 C (97 F) 08/15/2024 12:50 PM REBRANDER Respiratory Rate 16 08/15/2024 12:44 PM REBRANDER Oxygen Saturation 96% 08/15/2024 12:50 PM REBRANDER Inhaled Oxygen Concentration - - Weight 71.7 kg (158 lb) 08/15/2024 11:43 AM REBRANDER Height 167.6 cm (5' 6 ) 08/15/2024 11:43 AM REBRANDER Body Mass Index 25.5 08/15/2024 11:43 AM REBRANDER Plan of Treatment Upcoming Encounters Date Type Department Care Team (Late st Contact Info) Description 04/04/2025 9:30 AM CDT Office Visit [facility] [address] [place] [address] Health Maintenance Due Date Last Done Comments DTAP/TDAP/TD VACCINES (1 - Tdap) 1970 FIT-DNA Q 3 years 1996 FIT/FOBT Q 1 year 1996 Flex Sig/CT Colonography Q 5 years 1996 ZOSTER VACCINE (1 of 2) 2001 RSV VACCINE (60+ or ) (1 - Risk 60-74 years 1-dose series) 2011 PNEUMOCOCCAL VACCINE 50+ YEA RS (2 of 2 - PPSV23) 04/29/2019 04/29/2018 BREAST CANCER SCREENING 06/15/2019 06/15/2018, 06/15 OSTEOPOROSIS SCREENING 06/15/2023 06/15/2018, 2017 INFLUENZA VACCINE (#1) 2025 04/11/2023 COLORECTAL SCREENING 12/30/2027 12/29/2017, 12/29/2017, 12/29/2017, Additional history exists Colorectal Cancer Screening 12/30/2027 Medical Devices Implanted Type Area Legal Secretary Receptionist Device Identifier Shelf Expiration Date Model / Serial / Lot Lens Iol Veda Tolbert 19.5 [id number] - [id number] Implanted:Qty: 1 on 08/15/2024 by Florian Nguyen MD at [facility] Lens Left: Eye Digital H2O. 02/07/2027 [id number] / [id number] / Procedures Procedure Name Priority Date/Time Associated Diagnosis Comments XR DEXA BONE DENSITY AXIAL 1 OR MORE SITES Routine 06/15/2018 12:00 AM REBRANDER MAMMO SCREEN BILAT W OR WO CAD Routine 06/15/2018 12:00 AM REBRANDER ENDOSCOPY, COLON, SCREENING 12/29/2017 12:00 AM CDT from Last 3 Months or Most Recently Relevant to Health Maintenance Results * XR DEXA BONE DENSITY AXIAL 1 OR MORE SITES (06/15/2018 12:00 AM REBRANDER) Anatomical Region Laterality Modality Other us Abstract Spg Provider DIAGNOSTIC IMAGING ORDERAB LES Final Result * MAMMO SCREEN BILAT W OR WO CAD (06/15/2018 12:00 AM REBRANDER) Anatomical Region Laterality Modality Breast Bilateral Other us Abstract Spg Provider MAMMO ORDERABLES Final Res ult * ENDOSCOPY, COLON, SCREENING (12/29/2017 12:00 AM CDT) us Sgf Scanning GI PROCEDURE ORDERABLES Final Re sult from Last 3 Months or Most Recently Relevant to Health Maintenance Insurance MEDICAID [place] DUAL COMPLETE HMO [facility] [id number] Advance Directives For more information, please contact: [phone] * Full Code (Latest Code Status on File) Date Activated Date Inactivated Comments 08/15/2024 11:34 AM 08/15/2024 2:58 PM * Full Code Date Activated Date Inactivated Comments 05/13/2024 1:59 AM 05/14/2024 4:23 PM
--- OUTSIDE RECORDS SUMMARY | 2024-12-27 09:19 | XMS_ITS | Encounter Summary ---
Author Organization [facility] Address [address] [place] [address] Care Team Providers Care Director Clinical Operations Name Role Phone Dave Jacobo MD Primary Care Provider [phone] Encounter Details Date Type Department Care Team (Latest Contact Info) Description 02/16/2005 Outpatient Historical [facility] Endocrinology-Jose h [place] [address] [place] [address] Hitesh Rhoades MD NO ADDRESS ON FILE HYPOTHYROIDISM NOS (Primary Dx) Social History Tobacco Use Types Packs/Day Years Used Date Smoking Tobacco: Never Assessed Comments Unknown Sex and Gender Information Value Date Recorded Sex Assigned at Not on file Legal Sex Female 3:00 AM DIRECTOR CHECK Gender Identity Not on file Sexual Orientation Not on file documented as of this encounter Plan of Treatment Not on file documented as of this encounter Visit Diagnoses Diagnosis Unspecified hypothyroidism- Primary documented in this encounter Care Teams Director Clinical Operations Relationship Specialty Start Date End Date Dave Jacobo MD [address] [place] [address] PCP - General Family Practice 02/09/20 documented as of this encounter
--- OUTSIDE RECORDS SUMMARY | 2024-12-27 09:19 | XMS_ITS | Encounter Summary ---
Author Organization [facility] Address [address] [place] [address] Care Team Providers Care Psych Social Worker Name Role Phone Dave Jacobo MD Primary Care Provider Encounter Details Date Type Department Care Team (Latest Contact Info) Description 08/18/2004 Outpatient Historical [facility] Endocrinology-Jose h [place] [address] [place] [address] Hitesh Rhoades MD NO ADDRESS ON FILE HYPOTHYROIDISM NOS (Primary Dx) Social History Tobacco Use Types Packs/Day Years Used Date Smoking Tobacco: Never Assessed Comments Unknown Sex and Gender Information Value Date Recorded Sex Assigned at Not on file Legal Sex Female 3:00 AM PASTE UP WORKER Gender Identity Not on file Sexual Orientation Not on file documented as of this encounter Plan of Treatment Not on file documented as of this encounter Visit Diagnoses Diagnosis Unspecified hypothyroidism- Primary documented in this encounter Care Teams Psych Social Worker Relationship Specialty Start Date End Date Dave Jacobo MD [address] [place] [address] PCP - General Family Practice 02/09/20 documented as of this encounter
--- OUTSIDE RECORDS SUMMARY | 2024-12-27 09:19 | XMS_ITS | Encounter Summary ---
Author Organization [facility] Address [address] [place] [address] Care Team Providers Care Machine Printer Hose Name Role Phone Dave Jacobo MD Primary Care Provider Encounter Details Date Type Department Care Team (Latest Contact Info) Description 09/05/2006 Outpatient Historical [facility] Endocrinology-Jose h [place] [address] [place] [address] Hitesh Rhoades MD NO ADDRESS ON FILE Unspecified Hypothyroidism (Primary Dx) Social History Tobacco Use Types Packs/Day Years Used Date Smoking Tobacco: Never Assessed Comments Unknown Sex and Gender Information Value Date Recorded Sex Assigned at Not on file Legal Sex Female 3:00 AM VETERINARIAN EPIDEMIOLOGIST Gender Identity Not on file Sexual Orientation Not on file documented as of this encounter Plan of Treatment Not on file documented as of this encounter Visit Diagnoses Diagnosis Unspecified hypothyroidism- Primary documented in this encounter Care Teams Machine Printer Hose Relationship Specialty Start Date End Date Dave Jacobo MD [address] [place] [address] PCP - General Family Practice 02/09/20 documented as of this encounter
--- OUTSIDE RECORDS SUMMARY | 2024-12-27 09:19 | XMS_ITS | Encounter Summary ---
Author Organization [facility] Address [address] [place] [address] Care Team Providers Care Fitter Tacker Name Role Phone Dave Jacobo MD Primary Care Provider Encounter Details Date Type Department Care Team (Late st Contact Info) Description 08/19/2004 Outpatient Historical [facility] [address] [place] [address] Jac Espino MD [address] [place], [place] [address] Social History Tobacco Use Types Packs/Day Years Used Date Smoking Tobacco: Never Assessed Comments Unknown Sex and Gender Information Value Date Recorded Sex Assigned at Not on file Legal Sex Female 3:00 AM CARPENTER INSPECTOR Gender Identity Not on file Sexual Orientation Not on file documented as of this encounter Plan of Treatment Not on file documented as of this encounter Procedures Procedure Name Priority Date/Time Associated Diagnosis Comments RUBELLA IGG Routine 08/19/2004 2:34 PM CARPENTER INSPECTOR VARICELLA ZOSTER IGG Routine 08/19/2004 2:34 PM CARPENTER INSPECTOR documented in this encounter Results * VARICELLA ZOSTER IGG (08/19/2004 2:34 PM CARPENTER INSPECTOR) VZV IGG SEE SEP REPORT INTERFACE SYSTEM 08/19/2004 2:34 PM CARPENTER INSPECTOR us Jac Espino MD CHEMISTRY ORDERABLES Final Re sult Performing Organization Address [facility] Co de Phone Number INTERFACE SYSTEM Refer to clinic/hospital department * RUBELLA IGG (08/19/2004 2:34 PM CARPENTER INSPECTOR) RUBELLA IGG Immune Immune INTERFAC E SYSTEM 08/19/2004 2:34 PM CARPENTER INSPECTOR Jac Espino MD CHEMISTRY ORDERABLES Final Re sult Performing Organization Address City/[facility] de Phone Number INTERFACE SYSTEM Refer to clinic/hospital department documented in this encounter Visit Diagnoses Not on filedocumented in this encounter Care Teams Fitter Tacker Relationship Specialty Start Date End Date Dave Jacobo MD [address] [place] [phone] PCP - General Family Practice 02/09/20 documented as of this encounter
--- OUTSIDE RECORDS SUMMARY | 2024-12-27 09:19 | XMS_ITS | Clinical Summary ---
Author Organization [facility] Address [address] [place] [address] Care Team Providers Care Stripe Marker Name Role Phone Dave Jacobo MD Primary Care Provider Allergies Active Allergy Reactions Criticality Noted Date Comments Codeine Nausea and Vomiting Low 03/15/2008 Propoxyphene Nausea and Vomiting Low 03/15/2008 Medications pravastatin (PRAVACHOL) 40 mg Oral Tab Take 40 mg by mouth Daily LATE. Active levothyroxine 100 mcg tablet Take 100 mcg by mouth daily brush stainer. Active pantoprazole (PROTONIX) 40 mg Tablet, Delayed Release (E.C.) Take 40 mg by mouth daily. Active sulfamethoxazole -trimethoprim (BACTRIM DS) 800-160 mg tablet Take 1 Tablet by mouth 2 times daily. Active Active Problems Problem Noted Date Diagnosed Date Postsurgical hypothyroidism 04/04/2009 Immunizations Immunization Administration Dates Next Due PREVNAR (PCV13) pneumococcal 13-valent conjugate Vaccine 04/29/2018 Social History Tobacco Use Types Packs/Day Years Used Date Smoking Tobacco: Former Cigarettes Q uit: 01/20/2016 Smokeless Tobacco: Never Alcohol Use Standard Drinks/Week Comments No 0 (1 standard drink = 0.6 oz pur e alcohol) Comments No Sex and Gender Information Value Date Recorded Sex Assigned at Not on file Legal Sex Female 3:00 AM SURVEILLANCE SYSTEM MONITOR Gender Identity Not on file Sexual Orientation Not on file Last Filed Vital Signs Vital Sign Reading Time Taken Comments Blood Pressure 147/65 02/09/2020 10:00 AM CDT Pulse 71 02/09/2020 10:00 AM CDT Temperature 36.6 C (97.9 F) 02/09/2020 9:53 AM CDT Respiratory Rate 16 02/09/2020 10:00 AM CDT Oxygen Saturation 93% 02/09/2020 10:00 AM CDT Inhaled Oxygen Concentration - - Weight 73 kg (160 lb 15.3 oz) 02/09/2020 9:44 AM CDT Height 165.1 cm (5' 5 ) 11/28/2018 3:47 PM CDT Body Mass Index 26.78 11/28/2018 3:47 PM CDT Plan of Treatment Health Maintenance Due Date Last Done Comments DTAP/TDAP/TD VACCINES (1 - Tdap) 1970 FIT-DNA Q 3 years 1996 FIT/FOBT Q 1 year 1996 Flex Sig/CT Colonography Q 5 years 1996 ZOSTER VACCINE (1 of 2) 2001 PNEUMOCOCCAL VACCINE 50+ YEA RS (2 of 2 - PPSV23) 04/29/2019 04/29/2018, 04/29/2018 BREAST CANCER SCREENING 06/15/2019 06/15/2018, 04/27 OSTEOPOROSIS SCREENING 06/15/2023 06/15/2018, 2017 INFLUENZA VACCINE (#1) 2025 RSV VACCINE (60+ or ) (1 - 1-dose 75+ series) 2026 COLORECTAL SCREENING 12/30/2027 12/29/2017, 12/29/2017, 12/29/2017, Additional history exists Colorectal Cancer Screening 12/30/2027 Procedures Procedure Name Priority Date/Time Associated Diagnosis Comments XR DEXA BONE DENSITY AXIAL 1 OR MORE SITES Routine 06/15/2018 MAMMO SCREEN BILAT W OR WO CAD Routine 06/15/2018 ENDOSCOPY, COLON, SCREENING Routine 12/29/2017 from Last 3 Months or Most Recently Relevant to Health Maintenance Results * XR DEXA BONE DENSITY AXIAL 1 OR MORE SITES (06/15/2018) Anatomical Region Laterality Modality Other us Abstract Spg Provider DIAGNOSTIC IMAGING ORDERAB LES Final Result * MAMMO SCREEN BILAT W OR WO CAD (06/15/2018) Anatomical Region Laterality Modality Breast Bilateral Mammography us Abstract Spg Provider MAMMO ORDERABLES Final Res ult * ENDOSCOPY, COLON, SCREENING (12/29/2017) us Abstract Spg Provider GI PROCEDURE ORDERABLES Fi nal Result from Last 3 Months or Most Recently Relevant to Health Maintenance Insurance MEDICAID [place] [facility] DUAL COMPLETE MCR PPO D-SNP Care Teams Stripe Marker Relationship Specialty Start Date End Date Dave Jacobo MD [address] [place] [phone] PCP - General Family Practice 02/09/20
--- OUTSIDE RECORDS SUMMARY | 2024-12-27 09:19 | XMS_ITS | Encounter Summary ---
Author Organization [facility] Address [address] [place] [address] Care Team Providers Care Flight Director Name Role Phone Dave Jacobo MD Primary Care Provider Encounter Details Date Type Department Care Team (Latest Contact Info) Description 04/13/2004 Outpatient Historical [facility] GENER[facility] SUR[facility]ERY Leonel Alex MD [address] [place] [address] POSTSURG AFTERCARE OTHER SPECIFIED (Primary Dx) Social History Tobacco Use Types Packs/Day Years Used Date Smoking Tobacco: Never Assessed Comments Unknown Sex and Gender Information Value Date Recorded Sex Assigned at Not on file Legal Sex Female 3:00 AM BARREL FILLER Gender Identity Not on file Sexual Orientation Not on file documented as of this encounter Plan of Treatment Not on file documented as of this encounter Visit Diagnoses Diagnosis Other specified aftercare following surgery- Primary documented in this encounter Care Teams Flight Director Relationship Specialty Start Date End Date Dave Jacobo MD [address] [place] [phone] PCP - General Family Practice 02/09/20 documented as of this encounter
--- OUTSIDE RECORDS SUMMARY | 2024-12-27 09:19 | XMS_ITS | Encounter Summary ---
Author Organization [facility] Address [address] [place] [address] Care Team Providers Care Power Transformer Repairer Name Role Phone Dave Jacobo MD Primary Care Provider Encounter Details Date Type Department Care Team (Latest Contact Info) Description 08/16/2005 Outpatient Historical [facility] Endocrinology-Jose h [place] [address] [place] [address] Hitesh Rhoades MD NO ADDRESS ON FILE HYPOTHYROIDISM NOS (Primary Dx) Social History Tobacco Use Types Packs/Day Years Used Date Smoking Tobacco: Never Assessed Comments Unknown Sex and Gender Information Value Date Recorded Sex Assigned at Not on file Legal Sex Female 3:00 AM PILOT PLANT SUPERVISOR Gender Identity Not on file Sexual Orientation Not on file documented as of this encounter Plan of Treatment Not on file documented as of this encounter Visit Diagnoses Diagnosis Unspecified hypothyroidism- Primary documented in this encounter Care Teams Power Transformer Repairer Relationship Specialty Start Date End Date Dave Jacobo MD [address] [place] [address] PCP - General Family Practice 02/09/20 documented as of this encounter
--- OUTSIDE RECORDS SUMMARY | 2024-12-27 09:19 | XMS_ITS | Encounter Summary ---
Author Organization [facility] Address [address] [place] [address] Care Team Providers Care Shipping Services Sales Representative Name Role Phone Dave Jacobo MD Primary Care Provider [phone] Encounter Details Date Type Department Care Team (Late st Contact Info) Description 04/03/2004 Inpatient Historical [facility] IN [facility]ED Leonel Alex MD [address] [place] [address] CHR LYMPHOCYT THYROIDIT (Primary Dx) Social History Tobacco Use Types Packs/Day Years Used Date Smoking Tobacco: Never Assessed Comments Unknown Sex and Gender Information Value Date Recorded Sex Assigned at Not on file Legal Sex Female 3:00 AM HEALTH AND SAFETY REPRESENTATIVE Gender Identity Not on file Sexual Orientation Not on file documented as of this encounter Plan of Treatment Not on file documented as of this encounter Visit Diagnoses Diagnosis Chronic lymphocytic thyroiditis- Primary documented in this encounter Care Teams Shipping Services Sales Representative Relationship Specialty Start Date End Date Dave Jacobo MD [address] [place] [address] PCP - General Family Practice 02/09/20 documented as of this encounter
--- OUTSIDE RECORDS SUMMARY | 2024-12-27 09:19 | XMS_ITS | Encounter Summary ---
Author Organization [facility] Address [address] [place] [address] Care Team Providers Care Director Web Name Role Phone Dave Jacobo MD Primary Care Provider Encounter Details Date Type Department Care Team (Latest Contact Info) Description 02/10/2007 Outpatient Historical [facility] Endocrinology-Jose h [place] [address] [place] [address] Hitesh Rhoades MD NO ADDRESS ON FILE Unspecified Hypothyroidism (Primary Dx) Social History Tobacco Use Types Packs/Day Years Used Date Smoking Tobacco: Never Assessed Comments Unknown Sex and Gender Information Value Date Recorded Sex Assigned at Not on file Legal Sex Female 3:00 AM EYEWEAR CONSULTANT Gender Identity Not on file Sexual Orientation Not on file documented as of this encounter Plan of Treatment Not on file documented as of this encounter Visit Diagnoses Diagnosis Unspecified hypothyroidism- Primary documented in this encounter Care Teams Director Web Relationship Specialty Start Date End Date Dave Jacobo MD [address] [place] [phone] PCP - General Family Practice 02/09/20 documented as of this encounter
--- OUTSIDE RECORDS SUMMARY | 2024-12-27 09:19 | XMS_ITS | Encounter Summary ---
Author Organization [facility] Address [address] [place] [address] Care Team Providers Care Healthcare Customer Service Name Role Phone Dave Jacobo MD Primary Care Provider Encounter Details Date Type Department Care Team (Late st Contact Info) Description 02/18/2004 Outpatient Historical [facility] Endocrinology-[facility] [place] [address] [place] [address] Hitesh Rhoades MD NO ADDRESS ON FILE Social History Tobacco Use Types Packs/Day Years Used Date Smoking Tobacco: Never Assessed Comments Unknown Sex and Gender Information Value Date Recorded Sex Assigned at Not on file Legal Sex Female 3:00 AM SILVER LAP MACHINE TENDER Gender Identity Not on file Sexual Orientation Not on file documented as of this encounter Plan of Treatment Not on file documented as of this encounter Visit Diagnoses Not on filedocumented in this encounter Care Teams Healthcare Customer Service Relationship Specialty Start Date End Date Dave Jacobo MD [address] [place] [phone] PCP - General Family Practice 02/09/20 documented as of this encounter
--- OUTSIDE RECORDS SUMMARY | 2024-12-27 09:19 | XMS_ITS | Encounter Summary ---
Author Organization [facility] Address [address] [place] [address] Care Team Providers Care Investor Relations Analyst Name Role Phone Dave Jacobo MD Primary Care Provider Encounter Details Date Type Department Care Team (Latest Contact Info) Description 04/02/2004 [facility] [address] [place] [address] [place] [address] Leonel Alex MD [address] [facility] [place] [address] PREOP EXAM OTHER SPECIFIED (Primary Dx) Social History Tobacco Use Types Packs/Day Years Used Date Smoking Tobacco: Never Assessed Comments Unknown Sex and Gender Information Value Date Recorded Sex Assigned at Not on file Legal Sex Female 3:00 AM LODGING FACILITIES ATTENDANT Gender Identity Not on file Sexual Orientation Not on file documented as of this encounter Plan of Treatment Not on file documented as of this encounter Visit Diagnoses Diagnosis Other specified pre-operative examination- Primary documented in this encounter Care Teams Investor Relations Analyst Relationship Specialty Start Date End Date Dave Jacobo MD [address] [place] [address] PCP - General Family Practice 02/09/20 documented as of this encounter
--- OUTSIDE RECORDS SUMMARY | 2024-12-27 09:19 | XMS_ITS | Encounter Summary ---
Author Organization [facility] Address [address] [place] [address] Care Team Providers Care District Operations Manager Name Role Phone Dave Jacobo MD Primary Care Provider Encounter Details Date Type Department Care Team (Latest Contact Info) Description 05/18/2004 Outpatient Historical [facility] Endocrinology-Jose h [place] [address] [place] [address] Hitesh Rhoades MD NO ADDRESS ON FILE HYPOTHYROIDISM NOS (Primary Dx) Social History Tobacco Use Types Packs/Day Years Used Date Smoking Tobacco: Never Assessed Comments Unknown Sex and Gender Information Value Date Recorded Sex Assigned at Not on file Legal Sex Female 3:00 AM SHIP FITTER Gender Identity Not on file Sexual Orientation Not on file documented as of this encounter Plan of Treatment Not on file documented as of this encounter Visit Diagnoses Diagnosis Unspecified hypothyroidism- Primary documented in this encounter Care Teams District Operations Manager Relationship Specialty Start Date End Date Dave Jacobo MD [address] [place] [address] PCP - General Family Practice 02/09/20 documented as of this encounter
--- OUTSIDE RECORDS SUMMARY | 2024-12-27 09:20 | XMS_ITS | Encounter Summary ---
Author Organization [facility] Address [address] [place] [address] Care Team Providers Care Risk Management Professional Name Role Phone Dave Jacobo MD Primary Care Provider [phone] Encounter Details Date Type Department Care Team (Latest Contact Info) Description 08/27/2003 Outpatient Historical [facility] Medicine [address] [phone] Tomasa Villa, PARTS REMOVER [address] [place] [address] Sprain of neck (Primary Dx) Social History Tobacco Use Types Packs/Day Years Used Date Smoking Tobacco: Never Assessed Comments Unknown Sex and Gender Information Value Date Recorded Sex Assigned at Not on file Legal Sex Female 3:00 AM PRIMARY SCHOOL TEACHER Gender Identity Not on file Sexual Orientation Not on file documented as of this encounter Plan of Treatment Not on file documented as of this encounter Visit Diagnoses Diagnosis Sprain of neck- Primary Neck sprain and strain documented in this encounter Care Teams Risk Management Professional Relationship Specialty Start Date End Date Dave Jacobo MD [address] [place] [phone] PCP - General Family Practice 02/09/20 documented as of this encounter
--- OUTSIDE RECORDS SUMMARY | 2024-12-27 09:20 | XMS_ITS | Encounter Summary ---
Author Organization [facility] Address [address] [place] [address] Care Team Providers Care Lecturer In Marketing Name Role Phone Dave Jacobo MD Primary Care Provider Encounter Details Date Type Department Care Team (Latest Contact Info) Description 10/24/2003 Outpatient Historical [facility] Medicine [address] [phone] Tomasa Villa, STUDIO HAND [address] [place] [address] SPASM OF MUSCLE (Primary Dx); THYROIDITIS NOS; OTHER MALAISE AND FATIGUE Social History Tobacco Use Types Packs/Day Years Used Date Smoking Tobacco: Never Assessed Comments Unknown Sex and Gender Information Value Date Recorded Sex Assigned at Not on file 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
--- OUTSIDE RECORDS SUMMARY | 2024-12-27 09:20 | XMS_ITS | Encounter Summary ---
Author Organization [facility] Address [address] [place] [address] Care Team Providers Care Bike Designer Name Role Phone Dave Jacobo MD Primary Care Provider [phone] Encounter Details Date Type Department Care Team (Latest Contact Info) Description 10/28/2003 Outpatient Historical [facility] [address] [place] [address] Tomasa Villa, BOARD WRITER [address] [place] [address] DIARRHEA NOS (Primary Dx) Social History Tobacco Use Types Packs/Day Years Used Date Smoking Tobacco: Never Assessed Comments Unknown Sex and Gender Information Value Date Recorded Sex Assigned at Not on file 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
--- OUTSIDE RECORDS SUMMARY | 2024-12-27 09:20 | XMS_ITS | Encounter Summary ---
Author Organization [facility] Address [address] [place] [address] Care Team Providers Care Commissary Representative Name Role Phone Dave Jacobo MD Primary Care Provider Encounter Details Date Type Department Care Team (Latest Contact Info) Description 03/25/2004 Outpatient Historical [facility] Leonel Alex MD [address] [place] [address] Malig eric thyroid (Primary Dx) Social History Tobacco Use Types Packs/Day Years Used Date Smoking Tobacco: Never Assessed Comments Unknown Sex and Gender Information Value Date Recorded Sex Assigned at Not on file 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
--- OUTSIDE RECORDS SUMMARY | 2024-12-27 09:20 | XMS_ITS | Encounter Summary ---
Author Organization [facility] Address [address] [place] [address] Care Team Providers Care Reading Professor Name Role Phone Dave Jacobo MD Primary Care Provider Encounter Details Date Type Department Care Team (Latest Contact Info) Description 02/18/2004 Outpatient Historical [facility] Endocrinology-[facility] [place] [address] [place] [phone] Hitesh Rhoades MD NO ADDRESS ON FILE NONTOX MULTINODUL GOITER (Primary Dx) Social History Tobacco Use Types Packs/Day Years Used Date Smoking Tobacco: Never Assessed Comments Unknown Sex and Gender Information Value Date Recorded Sex Assigned at Not on file Legal Sex Female 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
--- OUTSIDE RECORDS SUMMARY | 2024-12-27 09:20 | XMS_ITS | Encounter Summary ---
Author Organization [facility] Address [address] [place] [address] Care Team Providers Care Hospital Account Liaison Name Role Phone Dave Jacobo MD Primary Care Provider [phone] Encounter Details Date Type Department Care Team (Latest Contact Info) Description 08/13/2003 Outpatient Historical [facility] Medicine [address] [phone] Tomasa Villa, TOBACCO GRADER [address] [place] [address] Sprain of neck (Primary Dx); SPASM OF MUSCLE Social History Tobacco Use Types Packs/Day Years Used Date Smoking Tobacco: Never Assessed Comments Unknown Sex and Gender Information Value Date Recorded Sex Assigned at Not on file 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
--- OUTSIDE RECORDS SUMMARY | 2024-12-27 09:20 | XMS_ITS | Encounter Summary ---
Author Organization [facility] Address [address] [place] [address] Care Team Providers Care Career Technology Teacher Name Role Phone Dave Jacobo MD Primary Care Provider Encounter Details Date Type Department Care Team (Latest Contact Info) Description 01/16/2004 Outpatient Historical [facility] Endocrinology-[place] [address] [place] [address] Hitesh Rhoades MD NO ADDRESS ON FILE HYPOTHYROIDISM NOS (Primary Dx); CHR LYMPHOCYT THYROIDIT; NONTOX UNINODULAR GOITER Social History Tobacco Use Types Packs/Day Years Used Date Smoking Tobacco: Never Assessed Comments Unknown Sex and Gender Information Value Date Recorded Sex Assigned at Not on file Legal Sex Female 3:00 AM [employer] MEDIC Gender Identity Not on file Sexual Orientation Not on file documented as of this encounter Plan of Treatment Not on file documented as of this encounter Visit Diagnoses Diagnosis Unspecified hypothyroidism- Primary Chronic lymphocytic thyroiditis Nontoxic uninodular goiter documented in this encounter Care Teams Career Technology Teacher Relationship Specialty Start Date End Date Dave Jacobo MD [address] [place] [phone] PCP - General Family Practice 02/09/20 documented as of this encounter
--- OUTSIDE RECORDS SUMMARY | 2024-12-27 09:20 | XMS_ITS | Encounter Summary ---
Author Organization [facility] Address [address] [place] [address] Care Team Providers Care Blueprint Duplicator Name Role Phone Dave Jacobo MD Primary Care Provider Encounter Details Date Type Department Care Team (Latest Contact Info) Description 08/22/2003 Outpatient Historical 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
--- NOTE | 2024-12-27 09:23 | XR_ITS ---
WS: [id number] Exam: XR chest 1V portable [id number] Date/Time of Exam: 12/27/2024 9:38 AM Reason For Exam: dyspnea/cough No priors. The lungs are hyperinflated. No consolidating infiltrates are seen. Mild plaque atelectasis in the LEFT base. No pleural effusions. Normal heart size. The mediastinum is normal in contour. Bony structures are intact. XR/XR chest 1V portable [id number] IMPRESSION: 1. Pulmonary hyperinflation. No acute finding.
--- NOTE | 2024-12-27 09:31 | CT_ITS ---
WS: [email or web address] Exam: CT head wo con* [id number] Date/Time of Exam: 12/27/2024 9:41 AM Reason For Exam: Trauma DLP: 1205.[address] scans at [facility] use at least one of these dose optimization techniques: automated exposure control; mA and/or kV adjustment per patient size (includes targeted exams where dose is matched to clinical indication); or iterative reconstruction. There was no sign of space-occupying mass or acute intracranial bleed. The ventricles and basal cisterns are normal in size. No extra-axial fluid collections. The skull is intact. The mastoids are clear. Slight mucosal thickening of the LEFT sphenoid sinus. Remaining facial sinuses are clear. Normal orbits and optic globes. Negative soft tissues. CT/CT head wo con* [id number] IMPRESSION: 1. No acute intracranial finding.
--- NOTE | 2024-12-27 09:31 | CT_ITS ---
WS: [email or web address] Exam: CT cervical spin wo con* [id number] Date/Time of Exam: 12/27/2024 9:41 AM Reason For Exam: Trauma DLP: 1205.[address] scans at [facility] use at least one of these dose optimization techniques: automated exposure control; mA and/or kV adjustment per patient size (includes targeted exams where dose is matched to clinical indication); or iterative reconstruction. There is a minimally displaced fracture along the posterior margin of the RIGHT vertebral artery foramen of C3. The foramen is not deformed and is widely patent. There are no other fractures identified. Minimal facet DJD. Disc spaces are relatively well-maintained. Mild spondylosis at C6-7. The bony spinal canal is widely patent. Unremarkable paraspinal soft tissues. CT/CT cervical spin wo con* [id number] IMPRESSION: 1. Minimally displaced fracture along the posterior margin of the RIGHT vertebr al artery foramen of C3. The foramen is not deformed and is widely patent. No o ther fractures were noted. 2. Minimal DJD. Results were discussed by phone with Dr. Larios the attending ER physician kiley mosqueda 10:07 a.m. 12/27/2024.
--- NOTE | 2024-12-27 09:37 | ED_ITS ---
HPI - Head Injury 2 General: Chief complaint: Head Injury Stated complaint: FALL Time Seen by Provider: 12/27/24 09:23 History of Present Illness: 74-year-old female presents to the [facility] ency room from outpatients. Patient was prepping for colonoscopy last night she got what sounds if she became orthostatic when she was getting up to go to the bathroom she fell and hit her head she was able to get back up and go back to bed this morning when she woke up she has a very small laceration along the left lateral portion of the superior orbital ridge with some bruising in that same region. She does not believe she was knocked out she has some mild neck discomfort. No vomiting she does have a bit of a headache. Patient is adamant that she will not do a prep again for colonoscopy. She was due at 10:00 this morning for her colonoscopy Associated symptoms: Deny neck pain Related Data Home Medications ?Medication ?Instructions ?Recorded ?Confirmed estradiol 0.01% (0.1 mg/gram) See Rx Instructions .Rou te .COMPLEX 05/15/24 12/27/24 vaginal cream cyanocobalamin (vitamin B-12) 100 mcg IM DAILY 5 12/27/24 1,000 mcg/mL injection kit ondansetron HCl 8 mg tablet 8 mg PO DAILY PRN Nausea 0 12/25/24 12/27/24 potassium chloride 20 mEq 20 meq PO DAILY 12/27/2404/13 tablet,extended release Previous Rx's ?Medication ?Instructions ?Recorded hydrochlorothiazide 25 mg tablet 25 mg PO DAILY #90 ta bs 04/30/24 alendronate 70 mg tablet (Fosamax) 70 mg PO .weekly #4 tabs 12/03/24 levothyroxine 88 mcg capsule 88 mcg PO DAILY #90 caps 12/14/24 pravastatin 20 mg tablet 20 mg PO DAILY #90 tabs 11/19 01/11 pravastatin 40 mg tablet 40 mg PO DAILY #90 tabs 11/19 01/11 hydrocodone 5 mg-acetaminophen 325 1 tab PO Q6H PRN pa in #10 tabs 12/27/24 mg tablet Allergies Allergy/AdvReac Type Severity Reaction Status Date / Time acetaminophen (From Allergy Unknown Verified 12/25/24 12:40 Darvocet-N) codeine Allergy ADR-Nausea Verified 12/25/24 12:40 nitrofurantoin (From Allergy ADR-Nausea Verified 12/25/24 12:40 Macrobid) propoxyphene (From Allergy Unknown Verified 12/25/24 12:40 Darvocet-N) Review of Systems 2 Const: Denies: fever(s) or chills Card: Denies: chest pain Resp: Denies: dyspnea GI: Denies: abdominal pain : Denies: dysuria, urinary frequency or urinary urgency Musc: Denies: neck pain or back pain Skin/Breast: Denies: rash PFSH ED 2 PFSH: Medical History Osteoporosis Vitamin D deficiency Hypertension Chronic cystitis Hyperlipemia Hypothyroidism Hypercholesteremia Surgical History H/O esophagogastroduodenoscopy (09/16/21) with dilation Status post colonoscopy with polypectomy 08/12/19: sigmoid polyp History of appendectomy History of cholecystectomy 2018 History of thyroidectomy H/O esophagogastroduodenoscopy (01/08/20) hiatal hernia with schatzki ring Family History Father , At age 82 from COPD and heart complications. COPD (chronic obstructive pulmonary disease) Mother , Age 76 Heart disease Other Diabetes Denies family history of Anesthesia complication Bleeding disorder Social History Smoking and tobacco/nicotine status: never used tobacco/nicotine Quit status (tobacco/nicotine): has quit using Year quit tobacco: 2017 Alcohol intake: never Substance/Drug Use: never Lives independently: Yes Marital status: Current occupational status: retired Physical Exam 2 Const: GENERAL APPEARANCE: cooperative ORIENTATION/CONSCIOUSNESS: Yes awake, Yes oriented to person, Yes oriented to place and Yes oriented to time HENMT: COMMON NORMALS: normocephalic, atraumatic and hearing grossly normal bilaterally HEAD & SCALP: normocephalic and atraumatic Resp: COMMON NORMALS: normal respiratory effort, No retractions, No use of accessory muscles and clear to auscultation bilaterally AUSCULTATION: clear to auscultation bilaterally Cardio: COMMON NORMALS: regular rate, regular rhythm and No murmurs present (Cardio) RATE: regular rate RHYTHM: regular rhythm GI: COMMON NORMALS: Soft to palpation and No hepatosplenomegaly present A USCULTATION: Yes normoactive bowel sounds PALPATION: Yes Soft to palpation, No Tenderness to palpation present (GI), No Guarding due to palpation present (GI) and Yes No hepatosplenomegaly present Extremity: COMMON NORMALS: normal to inspection, capillary refill normal, no clubbing, cyanosis or edema, no calf tenderness and no pedal edema Neuro: SENSORIUM/ORIENTATION: Yes oriented to person, Yes oriented to place and Yes oriented to time Skin: COMMON NORMALS: no rashes or lesions noted GENERAL SKIN EXAM: no rashes or lesions noted Course 2 Vital Signs: Vital signs: Vital Signs Pulse Rate 85 12/27/24 13:11 Respiratory Rate 16 12/27/24 09:16 Blood Pressure 142/71 12/27/24 13:11 Pulse Oximetry 95 12/27/24 13:11 Oxygen Delivery Me thod Room Air 12/27/24 09:16 MDM - Head Injury Medcial Decision Making C3 vertebral fracture adjacent to the vertebral artery CT of the head and neck does not show any evidence of dissection or intra irruption of the vertebral artery no vascular injury. Will discharge patient home on a c-collar narcotics hydrocodone for pain and follow-up with Dr. Quiles. Fracture appears stable at this time. Patient declined referral back to the GI lab to complete the colonoscopy Medical Records I reviewed the patient's medical records. Lab Data I reviewed the patient's lab results. 12/27/24 09:36 12/27/24 09:36 Radiology Impressions Chest X-Ray 12/27/24 09:23 IMPRESSION: 1. Pulmonary hyperinflation. No acute finding. Cervical Spine CT 12/27/24 09:31 IMPRESSION: 1. Minimally displaced fracture along the posterior margin of the RIGHT vertebral artery foramen of C3. The foramen is not deformed and is widely patent. No other fractures were noted. 2. Minimal DJD. Results were discussed by phone with Dr. Larios the attending ER physician at 10:07 a.m. 12/27/2024. Head CT 12/27/24 09:31 IMPRESSION: 1. No acute intracranial finding. Head/Neck CTA 12/27/24 10:40 IMPRESSION: 1. The bilateral carotid and extracranial internal carotid arteries are patent. The bilateral vertebral arteries in the neck are also widely patent. 2. The nondisplaced fracture of the RIGHT vertebral artery foramen at C3 causes no artery compromise. 3. The remaining soft tissues and bony elements of the neck were unremarkable. CTA of the head. The intracranial internal carotid arteries are patent. The bilateral vertebral arteries are patent into the basilar artery. The anterior, middle and posterior cerebral arteries are all patent. No critical stenosis or aneurysm. There was no space-occupying mass in the brain or acute bleed. No extra-axial fluid collections are demonstrated. The's skull is intact. Facial sinuses and mastoids are unremarkable. IMPRESSION: 1. The intracranial vertebral arteries and basilar artery are widely patent. The intracranial internal carotid arteries and major branches were all patent. No indication of aneurysm or critical stenosis. Laboratory Results WBC 10.20 10^3/uL (3.29-11.43) 12/27/24 09:36 RBC 5.20 10^6/uL (3.85-5.65) 12/27/24 09:36 Hgb 14.50 g/dL (11.27-16.99) 12/27/24 09:36 Hct 45.1 % (36-47) 12/27/24 09:36 MCV 86.7 fl (85-98) 12/27/24 09:36 MCH 27.9 pg (27-33) 12/27/24 09:36 MCHC 32.2 g/dL (30-55) 12/27/24 09:36 RDW 13.1 % (12.1-15.1) 12/27/24 09:36 Plt Count 345 10^3/cmm (157-399) 12/27/24 09:36 MPV 9.4 fL (7.4-10.4) 12/27/24 09:36 Neut % (Auto) 81.5 % 12/27/24 09:36 Lymph % (Auto) 13.2 % 12/27/24 09:36 [place] % (Auto) 4.7 % 12/27/24 09:36 Eos % (Auto) 0.1 % 12/27/24 09:36 Baso % (Auto) 0.2 % 12/27/24 09:36 Neut # (Auto) 8.31 10^3/uL (1.8-7.7) H 12/27/24 09:36 Lymph # (Auto) 1.4 10^3/uL (0.8-4.8) 12/27/24 09:36 [place] # (Auto) 0.5 10^3/uL (0.2-0.9) 12/27/24 09:36 Eos # (Auto) 0.0 10^3/uL (0.0-0.8) 12/27/24 09:36 Baso # (Auto) 0.0 10^3/uL (0.0-0.1) 12/27/24 09:36 Nucleated RBC % (auto) 0 % 12/27/24 09:36 Nucleated RBCs # 0.0 /100WBC 12/27/24 09:36 Sodium 140 mmol/L (136-145) 12/27/24 09:36 Potassium 3.8 mmol/L (3.5-5.1) 12/27/24 09:36 Chloride 98 mmol/L (98-107) 12/27/24 09:36 Carbon Dioxide 28 mmol/L (22-29) 12/27/24 09:36 Anion Gap 17.8 (5-19) 12/27/24 09:36 BUN 14 mg/dL (8-23) 12/27/24 09:36 Creatinine 1.0 mg/dL (0.5-0.9) H 12/27/24 09:36 GFR Calculation Not Reportable 12/27/24 09:36 Glucose 98 mg/dL (65-115) 12/27/24 09:36 Calculated Osmolality 290 mOsm/kg (285-295) 12/27/24 09:36 Calcium 8.4 mg/dL (8.5-10.5) L 12/27/24 09:36 Total Bilirubin 0.8 mg/dL (0.15-1.2) 12/27/24 09:36 AST 22 U/L (0-32) 12/27/24 09:36 ALT 17 U/L (0-33) 12/27/24 09:36 Alkaline Phosphatase 72 U/L (35-105) 12/27/24 09:36 Total Protein 8.3 g/dL (6.6-8.7) 12/27/24 09:36 Albumin 4.2 g/dL (3.5-5.2) 12/27/24 09:36 Globulin 4.1 g/dL (1.3-4.6) 12/27/24 09:36 All radiology interpretation(s) finalized by discharge Discharge Plan Discharge Patient Disposition: Home Clinical Impression: C3 cervical fracture Condition: Stable Prescriptions: New hydrocodone-acetaminophen 5-325 mg tablet 1 tab PO Q6H PRN (Reason: pain) Qty: 10 0RF No Action hydrochlorothiazide 25 mg tablet 25 mg PO DAILY Qty: 90 3RF cyanocobalamin (vitamin B-12) 1,000 mcg/mL kit 100 mcg IM DAILY estradiol 0.01 % (0.1 mg/gram) cream See Rx Instructions .ROUTE .COMPLEX Rx Instructions: Apply 1 applicate vaginally three times a week alendronate [Fosamax] 70 mg tablet 70 mg PO .weekly Qty: 4 11RF levothyroxine 88 mcg capsule 88 mcg PO DAILY Qty: 90 3RF pravastatin 20 mg tablet 20 mg PO DAILY Qty: 90 11RF Rx Instructions: Take with 40mg tablet pravastatin 40 mg tablet 40 mg PO DAILY Qty: 90 3RF Rx Instructions: take with a 20 mg tab ondansetron HCl 8 mg tablet 8 mg PO DAILY PRN (Reason: Nausea) Rx Instructions: TAKE 1 TABLET BY MOUTH EVERY 4 HOURS NEEDED potassium chloride 20 mEq tablet extended release 20 meq PO DAILY Discharge Orders: Discharge ED (Routine); Ordered 12/27/24 Ordered By: Scotty Wallace Referrals: Dave Jacobo MD [Primary Care Provider, Family Practice] Discharge Diet: Usual diet Discharge Activity: Limit activity as instructed Patient Instructions: Opioid Safety, Pain Management, Patient Portal & Adam Instructions Activity Restrictions/Additional Instructions: Thank you for choosing [facility] for your healthcare needs today. It is very important that you follow up as instructed or that you return to the Emergency Department should you have concerns or if your condition changes or worsens in any way. You were seen in the emergency room after a fall last night. CT of your neck shows a nondisplaced fracture in the C3 vertebrae. There is no evidence of any vascular damage adjacent to the fracture. This fracture will likely just need to be observed will place you in a c-collar and have you follow-up with orthopedic spine surgery Print Language: Hungarian Coding Level of Care Code ED Scientific Software Developer for Mariya Elaine
[2024-12-27 09:45] LABS: Hematocrit 45.1 % (36-47); Hemoglobin 14.50 g/dL (11.27-16.99); Mean Corpuscular HGB Conc 32.2 g/dL (30-55); Mean Corpuscular Hemoglobin 27.9 pg (27-33); Mean Corpuscular Volume 86.7 fl (85-98); Nucleated Red Blood Cells % 0 %; Platelet Count 345 10^3/cmm (157-399); Red Blood Count 5.20 10^6/uL (3.85-5.65); White Blood Count 10.20 10^3/uL (3.29-11.43)
[2024-12-27 10:04] LABS: Alanine Aminotransferase 17 U/L (0-33); Albumin Level 4.2 g/dL (3.5-5.2); Alkaline Phosphatase 72 U/L (35-105); Anion Gap 17.8 (5-19); Aspartate Amino Transferase 22 U/L (0-32); Blood Urea Nitrogen 14 mg/dL (8-23); Calcium 8.4 mg/dL (8.5-10.5); Carbon Dioxide 28 mmol/L (22-29); Chloride 98 mmol/L (98-107); Creatinine Clr Calc Pharmacy 50.3871; Globulin 4.1 g/dL (1.3-4.6); Glucose 98 mg/dL (65-115); Osmolality Calculated 290 mOsm/kg (285-295); Potassium 3.8 mmol/L (3.5-5.1); Sodium 140 mmol/L (136-145); Total Protein 8.3 g/dL (6.6-8.7)
--- NOTE | 2024-12-27 10:40 | CT_ITS ---
WS: [id number] Exam: CT [facility]* [id number] Date/Time of Exam: 12/27/2024 11:10 AM Reason For Exam: c3 fx near right vertebral artery DLP: 395.[address] scans at [facility] use at least one of these dose optimization techniques: automated exposure control; mA and/or kV adjustment per patient size (includes targeted exams where dose is matched to clinical indication); or iterative reconstruction. CT angiography of the neck. Moderately advanced emphysematous changes identified in the upper lung zones. The bilateral carotid and extracranial internal carotid arteries are patent. The bilateral vertebral arteries are also patent. The nondisplaced fracture of the RIGHT C3 vertebral artery foramen causes no compromise upon the RIGHT vertebral artery at this level. There was no indication of neck mass or cervical lymphadenopathy. Fibrous scarring in the lung apices. CT/CT angio [facility]* [id number] IMPRESSION: 1. The bilateral carotid and extracranial internal carotid arteries are patent. The bilateral vertebral arteries in the neck are also widely patent. 2. The nondisplaced fracture of the RIGHT vertebral artery foramen at C3 causes no artery compromise. 3. The remaining soft tissues and bony elements of the neck were unremarkable. CTA of the head. The intracranial internal carotid arteries are patent. The abran ateral vertebral arteries are patent into the basilar artery. The anterior, mid dle and posterior cerebral arteries are all patent. No critical stenosis or ane urysm. There was no space-occupying mass in the brain or acute bleed. No extra- axial fluid collections are demonstrated. The's skull is intact. Facial sinuses and mastoids are unremarkable. IMPRESSION: 1. The intracranial vertebral arteries and basilar artery are widely patent. Th e intracranial internal carotid arteries and major branches were all patent. No indication of aneurysm or critical stenosis.
[2024-12-27] MEDS: iohexol 350 mg/mL 500 mL Btl (per mL) IV (11:25)
--- NOTE | 2024-12-27 13:09 | DCPLANNER ---
messaged ortho for er f/u
[2024-12-27 13:11] VITALS: BP 142/71; PULSE 85; O2SAT 95
== END 2024-12-27 13:13 | disposition home or self-care (01) ==
PROVIDERS: Emergency Provider Family Medicine; PCP Family Medicine
DX: S12.200A Unspecified displaced fracture of third cervical vertebra, initial encounter for closed fracture (principal); S01.81XA Laceration without foreign body of other part of head, initial encounter; I10 Essential (primary) hypertension; E78.5 Hyperlipidemia, unspecified; E03.9 Hypothyroidism, unspecified; W18.30XA Fall on same level, unspecified, initial encounter
CPT/HCPCS: 36415; 70450; 70496; 70498; 71045; 72125; 80053; 85025; 99285

== ENCOUNTER → 2025-01-03 12:44 | Outpatient (BNVA) | payer MEDICARE, MEDICAID, SELFPAY | PROVIDERS: PCP Family Medicine; Visit Provider Orthopaedic Surgery | DX: S12.200A Unspecified displaced fracture of third cervical vertebra, initial encounter for closed fracture (principal); X58.XXXA Exposure to other specified factors, initial encounter | CPT/HCPCS: 72040; 99203 ==

== ENCOUNTER 2025-02-27 10:44 | Outpatient (CLI) | payer OTHER, MEDICAID, SELFPAY ==
--- NOTE | 2025-02-27 10:50 | MM_ITS ---
WS: [id number] BILATERAL 3D TOMOSYNTHESIS DIGITAL SCREENING MAMMOGRAPHY WITH CAD CLINICAL INFORMATION: SCREENING HISTORY: Screening mammogram. No current complaints. COMPARISON: 2023 TECHNIQUE: Bilateral CC and MLO views. FINDINGS: Scattered fibroglandular densities bilaterally. No suspicious focal mass, asymmetry, calcifications, or architectural distortion. No evidence of malignancy. A few incidental punctate calcifications. MM/MM scr tomosynthesis [id number] IMPRESSION: DENSITY: There are scattered areas of fibroglandular density. BI-RADS: 2 - Benign. FOLLOW UP: 1 Year Follow-up Recommend return to annual screening mammography.
== END 2025-02-27 10:45 | disposition home or self-care (01) ==
LOC: RAD 10:45
PROVIDERS: PCP Family Medicine; Visit Provider Family Medicine
DX: Z12.31 Encounter for screening mammogram for malignant neoplasm of breast (principal); R92.323 Mammographic fibroglandular density, bilateral breasts
CPT/HCPCS: 77063; 77067